=== PATIENT | female | born 1940 | race Caucasian/White ===

== ENCOUNTER 2017-04-02 11:46 | Inpatient (IN) | payer OTHER ==
[~2017-04-02] VITALS: Ht 142.2 cm; Wt 40.9 kg
[2017-04-02] MEDS ORDERED: ONDANSETRON 4 MG/2 ML VIAL IV ONE (12:00)
[2017-04-02] MEDS ORDERED: MORPHINE SULFATE 2 MG/1 ML DISP.SYRIN IV ONE (12:00)
[2017-04-02] MEDS ORDERED: MEMA10TA PO (12:07)
[2017-04-02] MEDS ORDERED: FLUO10CA26 PO (12:07)
[2017-04-02] MEDS ORDERED: INSU100V7 SQ ×2 (12:07)
[2017-04-02 12:16] LABS: BASOPHILS % (AUTO) 0.2 % (0.0-2.0); EOSINOPHILS % (AUTO) 0.1 % (0.0-7.0); HEMATOCRIT 39.2 % (31.2-41.9); LYMPHOCYTES # (AUTO) 1.6 K/uL (20.0-40.0); LYMPHOCYTES % (AUTO) 8.2 % (20.5-51.5); MEAN CORPUSCULAR HEMOGLOBIN 27.1 uug (24.7-32.8); MEAN CORPUSCULAR HGB CONC 33 g/dL (32.3-35.6); MEAN CORPUSCULAR VOLUME 81.4 fL (75.5-95.3); MONOCYTES # (AUTO) 1.2 K/uL (2.0-10.0); NEUTROPHILS # (AUTO) 16.8 K/uL (1.8-8.9); NEUTROPHILS % (AUTO) 85.5 % (38.5-71.5); PLATELET COUNT (AUTO) 309 K/uL (179-408); RED BLOOD CELL COUNT(AUTO) 4.81 MIL/uL (3.63-4.92); WHITE BLOOD COUNT (AUTO) 19.6 K/uL (3.8-11.8)
[2017-04-02 12:20] LABS: CARBON DIOXIDE 33 mmol/L (21-32); CHLORIDE 94 mmol/L (98-107); GLUCOSE 207 mg/dL (74-106); POTASSIUM 3.3 mmol/L (3.5-5.1); UREA NITROGEN, BLOOD 13 mg/dL (7-18)
[2017-04-02 12:26] LABS: ALANINE AMINOTRANSFERASE 18 U/L (14-59); ALKALINE PHOSPHATASE 103 U/L (50-136); ASPARTATE AMINOTRANSFERASE 17 U/L (15-37); BILIRUBIN,DIRECT 0.2 mg/dL (0.0-0.2); BILIRUBIN,TOTAL 0.6 mg/dL (0.2-1.0); LIPASE 68 U/L (73-393); TOTAL PROTEIN, SERUM 8.1 g/dL (6.4-8.2)
[2017-04-02] MEDS ORDERED: ONDANSETRON 4 MG/2 ML VIAL ONE (12:29)
[2017-04-02] MEDS ORDERED: MORPHINE SULFATE 2 MG/1 ML DISP.SYRIN ONE (12:29)
--- NOTE | 2017-04-02 12:29 | NUR ---
Pt BIB private ambulance from [facility], reports Pt has RUQ ABD pain and nausea, vomited x1 last night. Pt c/o 5/10 ABD pain and tenderness in RUQ, BSx4Qs. Pt denies CP, SOB, dizziness, no other complaints, no distress noted.
[2017-04-02] MEDS ORDERED: IV NORMAL SALINE 1000 ML BAG IV ONE (12:45)
[2017-04-02] MEDS ORDERED: NEOMY/BACITRA/POLYMYXIN B OINT UD PACKET TP ONE (13:24)
--- NOTE | 2017-04-02 13:51 | NUR ---
Called report to CHARLES Herrera
[2017-04-02] MEDS ORDERED: PIPERACILLIN/TAZOBACTAM/D5W 3.375 G in PREMIXED 1 EACH IV ONE (14:00)
[2017-04-02] MEDS ORDERED: PIPERACILLIN/TAZOBACTAM/D5W 50 ML IV ONE (14:09)
--- NOTE | 2017-04-02 14:30 | NUR ---
NEW PATIENT FROM ER TO ROOM 219 AWAKE ALERT X1 ,FORGETFUL AND SPEAK POLISH VS TAKEN STABLE NO FEVER NO N/V OR PAIN AT THIS TIME ON FALL PRECAUTION BED ALARM ON AND CALL LIGHT WITHIN REACH INSTRUCTION TO USE WHEN NEEDED
--- NOTE | 2017-04-02 15:30 | NUR ---
DR CHÁVEZ WAS CALL TO NOTIFY OF PT ADM AND MESSAGE LEFT
--- NOTE | 2017-04-02 16:30 | NUR ---
DR CHÁVEZ CALL BACK AND ORDER RECIEVED
[2017-04-02] MEDS ORDERED: DEXTROSE 50% 50 ML DISP.SYRIN IV PRN (16:45)
[2017-04-02] MEDS ORDERED: MORPHINE SULFATE 4 MG/1 ML DISP.SYRIN IV PRN (16:45)
[2017-04-02] MEDS ORDERED: MORPHINE SULFATE 2 MG/1 ML DISP.SYRIN IV PRN (16:45)
[2017-04-02] MEDS: PANTOPRAZOLE SODIUM 40 MG VIAL IV SCH (16:56)
[2017-04-02] MEDS: BLOOD SUGAR DIAGNOSTIC 1 EACH STRIP VI SCH ×2 (17:09→20:45)
--- NOTE | 2017-04-02 17:30 | NUR ---
DR DOUGHERTY HERE SEEN PATIENT AND NEW ORDER LAB IN CHART
[2017-04-02 17:55] VITALS: BP 104/54
--- NOTE | 2017-04-02 18:00 | NUR ---
PATIENT PULLED IV OUT RESTART A NEW ONE ON LEFT WRIST #20 AND CONTINUE IVF
[2017-04-02] MEDS: ONDANSETRON 4 MG/2 ML VIAL IV PRN (18:14)
[2017-04-02] MEDS: MORPHINE SULFATE 4 MG/1 ML DISP.SYRIN IV PRN (18:15)
--- NOTE | 2017-04-02 18:30 | NUR ---
PT ALERT AND ORIENTED X1. CLOSE OBSERVATION FOR FALL PRECAUTION. HAVE TO REMIND TO USE CALL LIGHT. SAFETY MEASURE PROVIDED. BED ALARM ON AND CALL LIGHT WITHIN REACH.
--- NOTE | 2017-04-02 19:30 | NUR ---
PATIENT AWAKE, SPEAK BULGARIAN, CONFUSED DUE TO HEALTH CONDITION, NO SOB NO CHEST PAIN, NO COMPLAIN OF AT THIS TIME, NO COUGHING NOTED, ASSISTED WITH TOILETING, FREQUENT VISUAL CHECK, CONT TO MONITOR.
[2017-04-02 20:00] VITALS: BP 110/50
[2017-04-02] MEDS: INSULIN REGULAR, HUMAN 300 UNIT/3 ML VIAL SQ PRN (20:48)
--- NOTE | 2017-04-03 00:15 | NUR ---
PATIENT HAS ORDER FOR LAPARASCOPIC PROCEDURE, OBTAINED CONSENT FROM KEVON KNOWLES SON OF THE PATIENT VIA PHONE WITH ANOTHER RN WITNESS.
[2017-04-03 00:16] LABS: *BLOOD, URINE 3+ (NEGATIVE); *CLARITY,URINE SLIGHTLY CLOUDY (CLEAR); *COLOR,URINE YELLOW (YELLOW); *KETONES,URINE TRACE (NEGATIVE); *PROTEIN,URINE 2+ (NEGATIVE); *UROBILINOGEN,URINE >=8.0 E.U./dl (NORMAL); LEUKOCYTE ESTERASE ,URINE NEGATIVE (NEGATIVE); NITRITE, URINE NEGATIVE (NEGATIVE); PH,URINE 6.5 (5.0-8.0); UGLUCOSE NEGATIVE (NEGATIVE)
[2017-04-03 00:27] LABS: *BILIRUBIN,URIN 1+ (NEGATIVE)
[2017-04-03 00:32] LABS: BACTERIA,URINE NONE SEEN /HPF (NONE SEEN); SQUAMOUS EPITHELIAL CELL,UR FEW /HPF (NONE SEEN); WBC,URINE 0-3 /HPF (0-3)
[2017-04-03 00:33] LABS: RBC,URINE 80-100 /HPF (0-3)
[2017-04-03] MEDS: IV D5/ 0.9% NACL 1,000 ML IV PRN (00:39)
[2017-04-03 04:00] VITALS: BP 120/61
[2017-04-03] MEDS: BLOOD SUGAR DIAGNOSTIC 1 EACH STRIP VI SCH ×4 (06:08→21:37)
--- NOTE | 2017-04-03 07:40 | NUR ---
Client is in bed supine with the HOB at 30 degrees. Client is awake and able to communicate in Japanese. No signs and symptoms of pain, SOB, distress or discomfort.
[2017-04-03 07:48] LABS: ALANINE AMINOTRANSFERASE 18 U/L (14-59); ALKALINE PHOSPHATASE 115 U/L (50-136); ASPARTATE AMINOTRANSFERASE 24 U/L (15-37); BILIRUBIN,TOTAL 0.4 mg/dL (0.2-1.0); CARBON DIOXIDE 29 mmol/L (21-32); CHLORIDE 103 mmol/L (98-107); CREATININE 0.8 mg/dL (0.6-1.3); GLUCOSE 224 mg/dL (74-106); MAGNESIUM 1.7 mg/dL (1.8-2.4); PHOSPHOROUS 2.6 mg/dL (2.5-4.9); UREA NITROGEN, BLOOD 11 mg/dL (7-18)
[2017-04-03 07:49] LABS: BASOPHILS # (AUTO) 0.1 K/uL (0.0-8.0); BASOPHILS % (AUTO) 0.8 % (0.0-2.0); EOSINOPHILS % (AUTO) 0.1 % (0.0-7.0); HEMATOCRIT 36.1 % (37-47); LYMPHOCYTES # (AUTO) 1.2 K/UL (0.8-4.8); LYMPHOCYTES % (AUTO) 7.7 % (20.5-51.5); MEAN CORPUSCULAR HEMOGLOBIN 27.2 UUG (27.0-31.0); MEAN CORPUSCULAR HGB CONC 33 g/dL (32.0-37.0); MEAN CORPUSCULAR VOLUME 82.1 FL (81.0-99.0); MONOCYTES # (AUTO) 1.3 K/UL (0.1-1.30); NEUTROPHILS # (AUTO) 13.1 K/UL (1.8-8.9); NEUTROPHILS % (AUTO) 83.4 % (38.5-71.5); PLATELET COUNT (AUTO) 261 K/UL (150-450); WHITE BLOOD COUNT (AUTO) 15.7 K/UL (4.0-11.2)
[2017-04-03] MEDS: PANTOPRAZOLE SODIUM 40 MG VIAL IV SCH (08:35)
[2017-04-03] MEDS ORDERED: POTASSIUM CHLORIDE 50 ML IV SCH (10:30)
--- NOTE | 2017-04-03 10:30 | NUR ---
Seen and evaluated by Dr. Chatman
[2017-04-03] MEDS: MAGNESIUM SULFATE/D5W 100 ML IV SCH ×2 (11:14→12:15)
[2017-04-03 11:41] VITALS: BP 118/54
[2017-04-03] MEDS: INSULIN REGULAR, HUMAN 300 UNIT/3 ML VIAL SQ PRN ×2 (12:11→21:39)
[2017-04-03] MEDS: POTASSIUM CHLORIDE 10 MEQ in IV DEXTROSE 5% 50 ML IV SCH ×4 (13:25→23:49)
--- NOTE | 2017-04-03 13:26 | NUR ---
IV Dextrose Potassium administered late due to previous infusions of Magnesium Sulfate
[2017-04-03] MEDS ORDERED: BUPIVACAINE/EPI PF 0.25% 30 ML VIAL ONE (13:34)
[2017-04-03] MEDS ORDERED: LIDOCAINE HCL 1% 20 ML VIAL ONE (13:34)
[2017-04-03] MEDS ORDERED: EPHEDRINE SULFATE 50 MG/ML AMPUL MC ONE (14:07)
[2017-04-03] MEDS ORDERED: DEXAMETHASONE SOD PHOSPHATE 4 MG INJ IV ONE (14:07)
[2017-04-03] MEDS ORDERED: SEVOFLURANE 250 ML BOTTLE IH ONE (14:07)
[2017-04-03] MEDS ORDERED: LIDOCAINE-MPF 2% 5 ML VIAL MC ONE (14:07)
[2017-04-03] MEDS ORDERED: IV NORMAL SALINE 1000 ML BAG IV ONE (14:07)
[2017-04-03] MEDS ORDERED: PROPOFOL 200 MG/20 ML BOTTLE IV ONE (14:07)
--- NOTE | 2017-04-03 15:20 | NUR ---
Iv Dextrose Potassium held due to noted left wrist IV leaking
--- NOTE | 2017-04-03 15:35 | NUR ---
New IV line started on the left forearm 20g. Resumed Potassium infusion
--- NOTE | 2017-04-03 15:43 | NUR ---
Client went down to procedure accompanied by two nurses Addendum: 04/03/17 at 1657 by GEE SMITH RN Noted that KCL 10 Meq in IV Dextrose 5% 50ml (1st bag) was placed on hold and not taken down with the client. Noted with about 20ml left to be infused
[2017-04-03] MEDS ORDERED: ROCURONIUM BROMIDE 50 MG/5 ML VIAL ONE (16:24)
[2017-04-03] MEDS ORDERED: FENTANYL CITRATE 100 MCG/2 ML AMPUL ONE ×2 (16:24→18:57)
[2017-04-03] MEDS ORDERED: METRONIDAZOLE 500 MG/NS 100ML 500 MG in PREMIXED 1 EACH IV ONE (16:30)
--- NOTE | 2017-04-03 16:30 | NUR ---
Flagyl non-administered because client was downstairs for procedure
--- NOTE | 2017-04-03 16:35 | NUR ---
client is not on the floor, client is getting a procedure done Addendum: 04/03/17 at 1636 by GEE SMITH RN Amended: Links added.
--- NOTE | 2017-04-03 16:39 | NUR ---
Accu-ck not done due to client is off the med-surg floor and downstairs for a procedure
--- NOTE | 2017-04-03 17:50 | NUR ---
No rounding made since client is still off the med-surg floor for procedure Addendum: 04/03/17 at 1752 by GEE SMITH RN Amended: Links added.
--- NOTE | 2017-04-03 18:45 | NUR ---
Client is still downstairs for procedure Addendum: 04/03/17 at 1846 by GEE SMITH RN Amended: Links added.
--- NOTE | 2017-04-03 18:47 | NUR ---
client is till downstairs for procedure Addendum: 04/03/17 at 1847 by GEE SMITH RN Amended: Links added.
--- NOTE | 2017-04-03 18:57 | NUR ---
Client is still off the med-surg floor and is still downstairs for procedure. Three bags of KCL still not administered
--- NOTE | 2017-04-03 19:01 | NUR ---
client is off the med-surg floor and downstairs for procedure Addendum: 04/03/17 at 1901 by GEE SMITH RN Amended: Links added.
--- NOTE | 2017-04-03 19:08 | NUR ---
Pharmacy is aware of the 25ml unfused KCL from the 1st bag and the 3 un-administered KCL bag due to client being downstairs for procedure. It will be endorsed to the coater smoking pipe to administer the rest on the KCL IV when client arrives back from procedure/surgery.
--- NOTE | 2017-04-03 19:40 | NUR ---
PATIENT BACK FROM LAPARASCOPIC PROCEDURE IN FAIR CONDITION, RECEIVED REPORT FROM ER NURSE, PATEINT WITH ALTA KIRBY DRAINING WITH SEROSANGUINEOUS FLUID IN MODERATE AMOUNT, AND ALSO PUNCTURE WOUND WITH LIQUID DRESSING IN THE ABDOMEN. NO COMPLAIN OF PAIN AT THIS TIME. CONT TO MONITOR.
--- NOTE | 2017-04-03 19:40 | NUR ---
ER NURSE ENDORSED TO ME THAT PATIENT YELLOW RING IS TAPED TO HER LEFT 4TH FINGERS, ALSO YELLOW NECKLACE, AND ONE (1) YELLOW EARRINGS ONLY. ER NURSE SAID THAT PATIENT HAS ONLY ONE (1) EARRINGS WHEN WENT FOR PROCEDURE. PATIENT WANTED TO WEAR HER JEWELRY, SO PATIENT IS WEARING HER NECKLACE AND EARRINGS.
[2017-04-03 20:00] VITALS: BP 118/58
[2017-04-03] MEDS ORDERED: METRONIDAZOLE 500 MG/NS 100ML 200 ML IV ONE (21:45)
[2017-04-03] MEDS: HYDROCODONE/APAP 5-325MG TABLET PO PRN (22:38)
[2017-04-03] MEDS: METRONIDAZOLE 500 MG/NS 100ML 500 MG in PREMIXED 1 EACH IV SCH (23:55)
[2017-04-04] MEDS: IV D5/ 0.9% NACL 1,000 ML IV PRN (01:39)
[2017-04-04 04:47] VITALS: BP 100/50
[2017-04-04] MEDS: METRONIDAZOLE 500 MG/NS 100ML 500 MG in PREMIXED 1 EACH IV SCH ×3 (06:08→21:54)
[2017-04-04] MEDS: BLOOD SUGAR DIAGNOSTIC 1 EACH STRIP VI SCH ×4 (06:09→20:51)
--- NOTE | 2017-04-04 06:15 | NUR ---
PATIENT ALERT, AWAKE NO SOB NO CHEST PAIN, STEPHAN DRAINING WITH SMALL AMOUNT OF SEROSANGUINEOUS DRAINING, PUNCTURE WOUND INTACT NO BLEEDING NOTED, STEPHAN SECURED WITH DRESSING AND TAPE, CONT ON PAIN MANAGEMENT, ASSISTED WITH TOILETING, VOIDED WITH LARGE AMOUNT OF CODY COLOR URINE. CONT TO MONITOR.
--- NOTE | 2017-04-04 07:30 | NUR ---
Received client in bed awake, with no s/s of pain, SOB, distress or discomfort. STEPHAN drain intact and draining.
[2017-04-04] MEDS: PANTOPRAZOLE SODIUM 40 MG VIAL IV SCH (08:17)
[2017-04-04] MEDS: MORPHINE SULFATE 4 MG/1 ML DISP.SYRIN IV PRN (08:18)
[2017-04-04] MEDS: INSULIN REGULAR, HUMAN 300 UNIT/3 ML VIAL SQ PRN ×4 (08:21→20:49)
[2017-04-04 10:03] LABS: BASOPHILS % (AUTO) 0.1 % (0.0-2.0); EOSINOPHILS % (AUTO) 0.1 % (0.0-7.0); HEMATOCRIT 36.6 % (31.2-41.9); HEMOGLOBIN 11.7 g/dL (10.9-14.3); LYMPHOCYTES # (AUTO) 0.8 K/uL (20.0-40.0); LYMPHOCYTES % (AUTO) 3.7 % (20.5-51.5); MEAN CORPUSCULAR HEMOGLOBIN 27.2 uug (24.7-32.8); MEAN CORPUSCULAR HGB CONC 32 g/dL (32.3-35.6); MEAN CORPUSCULAR VOLUME 84.7 fL (75.5-95.3); MONOCYTES # (AUTO) 0.6 K/uL (2.0-10.0); MONOCYTES % (AUTO) 2.8 % (0.0-11.0); NEUTROPHILS # (AUTO) 20.4 K/uL (1.8-8.9); NEUTROPHILS % (AUTO) 93.3 % (38.5-71.5); PLATELET COUNT (AUTO) 281 K/uL (179-408); RED BLOOD CELL COUNT(AUTO) 4.32 MIL/uL (3.63-4.92); WHITE BLOOD COUNT (AUTO) 21.9 K/uL (3.8-11.8)
[2017-04-04 10:11] LABS: ALANINE AMINOTRANSFERASE 56 U/L (14-59); ALKALINE PHOSPHATASE 108 U/L (50-136); ASPARTATE AMINOTRANSFERASE 81 U/L (15-37); BILIRUBIN,TOTAL 0.3 mg/dL (0.2-1.0); CARBON DIOXIDE 26 mmol/L (21-32); CHLORIDE 106 mmol/L (98-107); CREATININE 0.9 mg/dL (0.6-1.3); MAGNESIUM 2.3 mg/dL (1.8-2.4); PHOSPHOROUS 2.9 mg/dL (2.5-4.9); POTASSIUM 4.2 mmol/L (3.5-5.1); TOTAL PROTEIN, SERUM 6.4 g/dL (6.4-8.2); UREA NITROGEN, BLOOD 13 mg/dL (7-18)
[2017-04-04 10:27] LABS: GLUCOSE 358 mg/dL (74-106)
[2017-04-04 12:02] VITALS: BP 99/50
[2017-04-04] MEDS: HYDROCODONE/APAP 5-325MG TABLET PO PRN (12:06)
--- NOTE | 2017-04-04 12:19 | NUR ---
At client's bedside, noted the client sitting in the chair. tolerating activity with moderate pain on the right side of her abdomen. No signs of SOB. teaching client how to use the incentive spirametry
[2017-04-04] MEDS ORDERED: INSULIN GLARGINE,HUM 300 UNITS/3 ML CARTRIDGE SQ PRN ×4 (15:00→15:15)
--- NOTE | 2017-04-04 15:00 | NUR ---
Noted client with high Accu-checks, client is on clear liquids. AM accu-check was 321, noon was 376 and afternoon was 365. 9%NaCl with 5% Dextrose was DC
[2017-04-04 15:27] VITALS: BP 112/52
[2017-04-04] MEDS ORDERED: INSULIN DETEMIR 300 UNIT/3 ML CARTRIDGE SQ PRN ×2 (15:30)
[2017-04-04] MEDS: ACETAMINOPHEN 325 MG TABLET PO PRN (15:51)
[2017-04-04] MEDS: FLUOXETINE HCL 10 MG CAPSULE PO SCH (15:51)
--- NOTE | 2017-04-04 17:06 | NUR ---
30cc removed from the client right side STEPHAN, ice pack applied to abdomen, dressing changed
--- NOTE | 2017-04-04 18:39 | NUR ---
Client is in bed awake with HOB at 45 degrees, no sign and symptoms of pain, SOB, distress or discomfort. Re-educated the client on how to use the incentive spirometry, was able to follow direction and use the incentive spirometry as directed.
[2017-04-04 19:57] VITALS: BP 104/52
--- NOTE | 2017-04-04 20:05 | NUR ---
Pt resting in bed and watching TV. AAO x1. Son at bedside. No acute distress noted. No c/o pain or discomfort at this time. Safety measures maintained. Call light and personal belongings within reach. Will continue to monitor.
[2017-04-04] MEDS: MEMANTINE HCL 10 MG TABLET PO SCH (20:45)
[2017-04-05 04:45] VITALS: BP 133/57
[2017-04-05] MEDS: METRONIDAZOLE 500 MG/NS 100ML 500 MG in PREMIXED 1 EACH IV SCH ×3 (05:10→22:06)
[2017-04-05] MEDS: ACETAMINOPHEN 325 MG TABLET PO PRN (05:18)
--- NOTE | 2017-04-05 05:22 | NUR ---
Pt intermittently slept at night with episodes of confusion and getting out of the room. Reoriented pt as needed. Bed alarm on. 10 mL removed from STEPHAN drain on the right side. Iced pack placed on the abdomen. Pt trying to touch the drain and reorientation is needed. Meds given per MD's order and insulin coverage given per sliding scale. Will endorse to day shift RN. Continue to monitor.
[2017-04-05] MEDS: PANTOPRAZOLE SODIUM 40 MG TABLET.DR PO SCH (06:32)
[2017-04-05] MEDS: BLOOD SUGAR DIAGNOSTIC 1 EACH STRIP VI SCH ×4 (06:36→21:19)
[2017-04-05 06:53] LABS: ALANINE AMINOTRANSFERASE 50 U/L (14-59); ALKALINE PHOSPHATASE 103 U/L (50-136); ASPARTATE AMINOTRANSFERASE 41 U/L (15-37); BILIRUBIN,TOTAL 0.2 mg/dL (0.2-1.0); CARBON DIOXIDE 27 mmol/L (21-32); CHLORIDE 109 mmol/L (98-107); CREATININE 0.7 mg/dL (0.6-1.3); GLUCOSE 122 mg/dL (74-106); PHOSPHOROUS 1.6 mg/dL (2.5-4.9); POTASSIUM 3.3 mmol/L (3.5-5.1); TOTAL PROTEIN, SERUM 6.4 g/dL (6.4-8.2); UREA NITROGEN, BLOOD 10 mg/dL (7-18)
--- NOTE | 2017-04-05 07:00 | NUR ---
RECEIVED REPORT FROM WELDING MACHINE ASSEMBLER NURSE, PATIENT IN BED AWAKE, NO EVIDENCE OF DISTRESS NOTED, BED IN LOW POSITION, SIDE RAILS UP X2.
[2017-04-05 07:09] LABS: BASOPHILS % (AUTO) 0.1 % (0.0-2.0); EOSINOPHILS % (AUTO) 0.1 % (0.0-7.0); HEMATOCRIT 35.9 % (31.2-41.9); HEMOGLOBIN 12.2 g/dL (10.9-14.3); LYMPHOCYTES # (AUTO) 1.6 K/uL (20.0-40.0); MEAN CORPUSCULAR HEMOGLOBIN 28.4 uug (24.7-32.8); MEAN CORPUSCULAR HGB CONC 34 g/dL (32.3-35.6); MEAN CORPUSCULAR VOLUME 83.4 fL (75.5-95.3); MONOCYTES # (AUTO) 0.9 K/uL (2.0-10.0); MONOCYTES % (AUTO) 4.2 % (0.0-11.0); NEUTROPHILS # (AUTO) 19.7 K/uL (1.8-8.9); NEUTROPHILS % (AUTO) 88.6 % (38.5-71.5); PLATELET COUNT (AUTO) 317 K/uL (179-408); RED BLOOD CELL COUNT(AUTO) 4.31 MIL/uL (3.63-4.92); WHITE BLOOD COUNT (AUTO) 22.2 K/uL (3.8-11.8)
[2017-04-05] MEDS: HYDROCODONE/APAP 5-325MG TABLET PO PRN ×2 (08:48→13:40)
[2017-04-05] MEDS: FLUOXETINE HCL 10 MG CAPSULE PO SCH (08:48)
[2017-04-05] MEDS: MEMANTINE HCL 10 MG TABLET PO SCH ×2 (08:48→21:16)
[2017-04-05] MEDS: INSULIN REGULAR, HUMAN 300 UNIT/3 ML VIAL SQ PRN ×3 (08:51→21:27)
[2017-04-05 11:28] VITALS: BP 107/53
[2017-04-05] MEDS ORDERED: POTASSIUM CHLORIDE 20 MEQ POWDER PACKET PO ONE (12:30)
[2017-04-05 15:07] VITALS: BP 125/50
[2017-04-05] MEDS ORDERED: NEUTRA PHOS PACKET PO ONE (15:45)
--- NOTE | 2017-04-05 19:49 | NUR ---
RECEIVED SHIFT REPORT FROM DAY SHIFT NURSE. PATIENT IS SLIGHTLY CONFUSED, GETS OUT OF BED NUMEROUS TIMES WITH BED ALARM ON. REORIENTED HER TO GET INSIDE BED AND PATIENT IS COOPERATIVE. BED ALARM IS ON. PATIENT IS SAFE. NO S/S OF DISTRESS. HAS STEPHAN DRAIN IN PLACE, INTACT. STABLE CONDITION. SAFETY/COMFORT WILL BE PROVIDED.
[2017-04-05 20:30] VITALS: BP 172/72
[2017-04-05] MEDS ORDERED: NITROGLYCERIN OINT 1 GM PACKET TP SCH (20:30)
[2017-04-05 21:12] VITALS: BP 133/66
[2017-04-06] MEDS: MORPHINE SULFATE 4 MG/1 ML DISP.SYRIN IV PRN ×2 (01:14→11:09)
[2017-04-06 04:00] VITALS: BP 127/74
[2017-04-06] MEDS: METRONIDAZOLE 500 MG/NS 100ML 500 MG in PREMIXED 1 EACH IV SCH ×3 (05:58→22:28)
[2017-04-06] MEDS: PANTOPRAZOLE SODIUM 40 MG TABLET.DR PO SCH (06:08)
--- NOTE | 2017-04-06 06:43 | NUR ---
PAIN MANAGEMENT PROVIDED, STEPHAN DRAIN DRAINED, PATIENT IN STABLE CONDITION, NO S/S OF DISTRESS.
[2017-04-06 06:53] LABS: BASOPHILS % (AUTO) 0.2 % (0.0-2.0); EOSINOPHILS % (AUTO) 0.2 % (0.0-7.0); HEMATOCRIT 35.7 % (31.2-41.9); HEMOGLOBIN 11.7 g/dL (10.9-14.3); LYMPHOCYTES # (AUTO) 2.2 K/uL (20.0-40.0); MEAN CORPUSCULAR HEMOGLOBIN 27.5 uug (24.7-32.8); MEAN CORPUSCULAR HGB CONC 33 g/dL (32.3-35.6); MEAN CORPUSCULAR VOLUME 83.5 fL (75.5-95.3); MONOCYTES # (AUTO) 1.2 K/uL (2.0-10.0); MONOCYTES % (AUTO) 7.8 % (0.0-11.0); NEUTROPHILS % (AUTO) 77.8 % (38.5-71.5); PLATELET COUNT (AUTO) 385 K/uL (179-408); RED BLOOD CELL COUNT(AUTO) 4.27 MIL/uL (3.63-4.92); WHITE BLOOD COUNT (AUTO) 15.5 K/uL (3.8-11.8)
[2017-04-06] MEDS: BLOOD SUGAR DIAGNOSTIC 1 EACH STRIP VI SCH ×4 (06:53→21:00)
--- NOTE | 2017-04-06 06:53 | NUR ---
BLOOD SUGAR 76: PROVIDED PATIENT WITH APPLE JUICE.
[2017-04-06 07:23] LABS: ALANINE AMINOTRANSFERASE 73 U/L (14-59); ALKALINE PHOSPHATASE 281 U/L (50-136); ASPARTATE AMINOTRANSFERASE 118 U/L (15-37); BILIRUBIN,TOTAL 0.3 mg/dL (0.2-1.0); CARBON DIOXIDE 30 mmol/L (21-32); CHLORIDE 106 mmol/L (98-107); CREATININE 0.8 mg/dL (0.6-1.3); GLUCOSE 59 mg/dL (74-106); MAGNESIUM 1.5 mg/dL (1.8-2.4); PHOSPHOROUS 2.4 mg/dL (2.5-4.9); TOTAL PROTEIN, SERUM 6.6 g/dL (6.4-8.2); UREA NITROGEN, BLOOD 6 mg/dL (7-18)
[2017-04-06] MEDS ORDERED: POTASSIUM CHLORIDE 20 MEQ POWDER PACKET PO ONE (09:00)
[2017-04-06] MEDS ORDERED: POTASSIUM CHLORIDE 50 ML IV SCH (09:00)
[2017-04-06 09:26] LABS: *BILIRUBIN,URIN NEGATIVE (NEGATIVE); *BLOOD, URINE 2+ (NEGATIVE); *COLOR,URINE YELLOW (YELLOW); *KETONES,URINE NEGATIVE (NEGATIVE); *PROTEIN,URINE NEGATIVE (NEGATIVE); *UROBILINOGEN,URINE >=8.0 E.U./dl (NORMAL); LEUKOCYTE ESTERASE ,URINE NEGATIVE (NEGATIVE); NITRITE, URINE NEGATIVE (NEGATIVE); PH,URINE 7.5 (5.0-8.0); UGLUCOSE NEGATIVE (NEGATIVE)
[2017-04-06 09:27] LABS: *CLARITY,URINE SLIGHTLY CLOUDY (CLEAR)
[2017-04-06] MEDS: MEMANTINE HCL 10 MG TABLET PO SCH ×2 (09:31→21:01)
[2017-04-06] MEDS: FLUOXETINE HCL 10 MG CAPSULE PO SCH (09:31)
[2017-04-06 09:32] LABS: BACTERIA,URINE FEW /HPF (NONE SEEN); SQUAMOUS EPITHELIAL CELL,UR FEW /HPF (NONE SEEN)
[2017-04-06] MEDS: ONDANSETRON 4 MG/2 ML VIAL IV PRN (09:32)
[2017-04-06] MEDS: MAGNESIUM SULFATE/D5W 100 ML IV SCH ×4 (09:33→14:33)
--- NOTE | 2017-04-06 11:31 | NUR ---
IV NOTE HAS MULTI IVS ORDERED SHE IS GETTING IN AND OUT OF BED AND PULLING ON THE IV AND STEPHAN DRAIN TUBING. IV COVERED WITH GAUZE. IVF STOPPED FOR NOW D/T HER AGITATION.
[2017-04-06 11:35] VITALS: BP 142/74
[2017-04-06] MEDS: INSULIN REGULAR, HUMAN 300 UNIT/3 ML VIAL SQ PRN ×3 (12:18→21:09)
[2017-04-06 15:58] VITALS: BP 94/55
[2017-04-06] MEDS: POTASSIUM CHLORIDE 10 MEQ in IV DEXTROSE 5% 50 ML IV SCH ×4 (16:09→23:20)
[2017-04-06] MEDS ORDERED: NEUTRA PHOS PACKET PO ONE (16:30)
--- NOTE | 2017-04-06 19:37 | NUR ---
RECEIVED SHIFT REPORT FROM DAY SHIFT NURSE. PATIENT RESTING COMFORTABLY, NO S/S OF DISTRESS, STABLE CONDITION. BED ALARM ON, BED IN LOCKED/LOW POSITION, SIDE RAILS UP X3, CALL LIGHT WITHIN REACH. SAFETY/ COMFORT WILL BE PROVIDED.
[2017-04-06 20:00] VITALS: BP 119/56
[2017-04-07] MEDS: HYDROCODONE/APAP 5-325MG TABLET PO PRN (02:15)
[2017-04-07] MEDS: PANTOPRAZOLE SODIUM 40 MG TABLET.DR PO SCH (05:53)
[2017-04-07] MEDS: METRONIDAZOLE 500 MG/NS 100ML 500 MG in PREMIXED 1 EACH IV SCH (05:53)
[2017-04-07] MEDS: BLOOD SUGAR DIAGNOSTIC 1 EACH STRIP VI SCH ×2 (06:08→10:52)
[2017-04-07 06:34] VITALS: BP 115/74
--- NOTE | 2017-04-07 06:37 | NUR ---
PATIENT SLEPT INTERMITTENTLY THROUGH THE NIGHT. NO S/S OF DISTRESS, STABLE CONDITION. PATIENT COMPLAINED OF PAIN ONCE THROUGH THE NIGHT, PAIN MANGAEMENT PROVIDED. PATIENT CONTINUES TO BE CONFUSED, ORIENTED TO SELF. REORIENTATION IMPORTANT FOR PATIENT AND IS EFFECTIVE. ATTEMPTS TO PULL OUT IV AT TIMES WHEN ANTIBIOTICS ARE RUNNING. OTHERWISE, PATIENT IS IN SAFE ENVIRONMENT, SAFE CONDITION, BED IN LOCKED/LOW POSITION WITH SIDE RAILS UP X2, BED ALARM ON, CALL LIGHT WITHIN REACH. SAFETY/COMFORT PROVIDED THROUGHOUT SHIFT.
[2017-04-07 07:28] LABS: CARBON DIOXIDE 26 mmol/L (21-32); CHLORIDE 103 mmol/L (98-107); CREATININE 0.8 mg/dL (0.6-1.3); GLUCOSE 255 mg/dL (74-106); PHOSPHOROUS 3.1 mg/dL (2.5-4.9); POTASSIUM 4.9 mmol/L (3.5-5.1); UREA NITROGEN, BLOOD 8 mg/dL (7-18)
[2017-04-07] MEDS: MEMANTINE HCL 10 MG TABLET PO SCH (08:05)
[2017-04-07] MEDS: FLUOXETINE HCL 10 MG CAPSULE PO SCH (08:05)
--- NOTE | 2017-04-07 08:54 | NUR ---
PATIENT RESTING COMFORTABLY, NO S/S OF DISTRESS, STABLE CONDITION. BED ALARM ON, BED IN LOCKED/LOW POSITION, SIDE RAILS UP X3, CALL LIGHT WITHIN REACH. SAFETY/ COMFORT WILL BE PROVIDED
[2017-04-07] MEDS: INSULIN REGULAR, HUMAN 300 UNIT/3 ML VIAL SQ PRN (10:53)
[2017-04-07 11:27] VITALS: BP 138/66
--- NOTE | 2017-04-07 13:01 | NUR ---
STEPHAN DRAINAGE REMOVED BY DR DOUGHERTY
[2017-04-07 15:44] VITALS: BP 109/58
--- NOTE | 2017-04-07 15:51 | NUR ---
D/C ORDERS RECEIVED NOTED AND CARRIED OUT,D/C HEPLOCK PER MD ORDERS,RN REPORT GIVEN TO [facility],PT LEFT THE FACILITY VIA AMBULANCES IN STABLE CONDITION.
== END 2017-04-07 15:55 | DRG 417 ==
LOC: ER 11:49 → MED 14:17
PROVIDERS: ADMIT Internal Medicine; ATTEND Internal Medicine
PROC: 0FB04ZX Excision of Liver, Percutaneous Endoscopic Approach, Diagnostic (ICD-10-PCS; 2017-04-03)
PROC: 0FT44ZZ Resection of Gallbladder, Percutaneous Endoscopic Approach (ICD-10-PCS; principal; 2017-04-03 16:26)
DX: K80.00 Calculus of gallbladder with acute cholecystitis without obstruction (principal); E43 Unspecified severe protein-calorie malnutrition; G30.9 Alzheimer's disease, unspecified; E11.9 Type 2 diabetes mellitus without complications; N39.0 Urinary tract infection, site not specified; F02.80 Dementia in other diseases classified elsewhere, unspecified severity, without behavioral disturbance, psychotic disturbance, mood disturbance, and anxiety; E83.51 Hypocalcemia; K44.9 Diaphragmatic hernia without obstruction or gangrene; K57.30 Diverticulosis of large intestine without perforation or abscess without bleeding; E78.5 Hyperlipidemia, unspecified; E87.6 Hypokalemia; Z68.20 Body mass index [BMI] 20.0-20.9, adult; Z79.4 Long term (current) use of insulin; I10 Essential (primary) hypertension; Z79.899 Other long term (current) drug therapy; M81.0 Age-related osteoporosis without current pathological fracture
CPT/HCPCS: 36415; 71010; 83690; 83735; 84100; 85025; 85730; 87040; 87086; 93005; 93307; A4663; C9113; J1100; J1815; J2270; J2405; J2543; J3010; J3475; J3480; J3490; J7030; J7042; J7060

== ENCOUNTER 2019-05-07 16:16 | Emergency (ER) | payer OTHER ==
[~2019-05-07] VITALS: Ht 152.4 cm; Wt 50.3 kg
[~2019-05-07 16:16] MED LIST: ATOR20TA PO; FLUO10CA26 PO; FLUO10TA PO; INSU100V7 SQ; INSU300I SQ; LORA10TA7 PO; MEMA10TA PO
[2019-05-07] MEDS ORDERED: ASPI81TA31 PO (16:31)
[2019-05-07] MEDS ORDERED: LORA-259 PO (16:31)
[2019-05-07] MEDS ORDERED: ESOM40CA52 PO (16:31)
[2019-05-07] MEDS ORDERED: INSU3INS6 SQ ×2 (16:31)
[2019-05-07] MEDS ORDERED: ATOR10TA PO (16:31)
[2019-05-07 16:44] LABS: BASOPHILS # (AUTO) 0.1 K/uL (0.0-8.0)
[2019-05-07 16:50] LABS: BASOPHILS % (AUTO) 0.6 % (0.0-2.0); EOSINOPHILS # (AUTO) 0.2 K/uL (0.0-0.7); EOSINOPHILS % (AUTO) 1.6 % (0.0-7.0); HEMATOCRIT 40.4 % (31.2-41.9); HEMOGLOBIN 12.9 g/dL (10.9-14.3); LYMPHOCYTES # (AUTO) 3.3 K/uL (20.0-40.0); LYMPHOCYTES % (AUTO) 23.7 % (20.5-51.5); MEAN CORPUSCULAR HEMOGLOBIN 26.5 uug (24.7-32.8); MEAN CORPUSCULAR HGB CONC 32 g/dL (32.3-35.6); MEAN CORPUSCULAR VOLUME 82.7 fL (75.5-95.3); MONOCYTES # (AUTO) 0.8 K/uL (2.0-10.0); MONOCYTES % (AUTO) 6.1 % (0.0-11.0); NEUTROPHILS # (AUTO) 9.5 K/uL (1.8-8.9); PLATELET COUNT (AUTO) 301 K/uL (179-408); RED BLOOD CELL COUNT(AUTO) 4.89 MIL/uL (3.63-4.92)
[2019-05-07 16:51] LABS: POTASSIUM 3.7 mmol/L (3.5-5.1)
[2019-05-07 16:57] LABS: BILIRUBIN,DIRECT 0.1 mg/dL (0.0-0.2); BILIRUBIN,TOTAL 0.4 mg/dL (0.2-1.0); TOTAL PROTEIN, SERUM 7.9 g/dL (6.4-8.2)
[2019-05-07] MEDS ORDERED: IV NORMAL SALINE 1000 ML BAG IV ONE (17:00)
[2019-05-07 17:19] LABS: *BILIRUBIN,URIN NEGATIVE (NEGATIVE); *CLARITY,URINE CLEAR (CLEAR); *COLOR,URINE YELLOW (YELLOW); *KETONES,URINE NEGATIVE (NEGATIVE); *UROBILINOGEN,URINE 0.2 E.U./dl (NORMAL); LEUKOCYTE ESTERASE ,URINE NEGATIVE (NEGATIVE); NITRITE, URINE NEGATIVE (NEGATIVE); PH,URINE 6.5 (5.0-8.0); UGLUCOSE 2+ (NEGATIVE)
[2019-05-07 17:26] LABS: *BLOOD, URINE TRACE (NEGATIVE)
[2019-05-07 17:27] LABS: SQUAMOUS EPITHELIAL CELL,UR MODERATE /HPF (NONE SEEN); WBC,URINE 0-3 /HPF (0-3)
--- NOTE | 2019-05-07 17:55 | NUR ---
called jordana to take the pt back home. eta 2000, trip number [id number]
--- NOTE | 2019-05-07 18:04 | NUR ---
dinner tray provided for pt.
--- NOTE | 2019-05-07 18:56 | NUR ---
Pending [facility] to transport pt back to [facility]. ETA 1 hour.
--- NOTE | 2019-05-07 20:03 | NUR ---
[facility] unit [facility] here to transport pt back to [facility]. Patient discharged to home in stable conditon. Written and verbal after care instructions given. Patient verbalizes understanding of instructions. Vital signs stable. Respirations even + unlabored.
[2019-05-07 20:06] VITALS: BP 134/64
== END 2019-05-07 20:11 | disposition home or self-care (01) ==
LOC: ER 16:18
DX: J06.9 Acute upper respiratory infection, unspecified (principal); E11.65 Type 2 diabetes mellitus with hyperglycemia; K21.9 Gastro-esophageal reflux disease without esophagitis; F32.9 Major depressive disorder, single episode, unspecified; F20.9 Schizophrenia, unspecified; Z88.8 Allergy status to other drugs, medicaments and biological substances; Z79.82 Long term (current) use of aspirin; Z79.4 Long term (current) use of insulin; Z79.899 Other long term (current) drug therapy
CPT/HCPCS: 36415; 71045; 85025; 87400; 93005; A4663; J7030

== ENCOUNTER 2019-08-30 01:04 | Inpatient (IN) | payer OTHER ==
[~2019-08-30] VITALS: Ht 149.9 cm; Wt 39.0 kg
[~2019-08-30 01:04] MED LIST changes: +ASPI81TA31 PO; +ATOR10TA PO; +ESOM40CA52 PO; +INSU3INS6 SQ; +LORA-259 PO
--- NOTE | 2019-08-30 01:10 | NUR ---
Called [facility] Neph[facility] to page Dr. Santiago.
--- NOTE | 2019-08-30 01:15 | NUR ---
speaking with Errol Santiago MD of [facility] Nephrology.
--- NOTE | 2019-08-30 01:20 | NUR ---
Xray at bedside.
[2019-08-30 01:44] LABS: ABG BASE EXCESS 2.6 mmol/L; ABG HCO3 26.4 mmol/L; ABG PCO2 38.2 mmHg (35.0-45.0); ABG PH 7.458 (7.350-7.450); ABG PO2 92.9 mmHg (75.0-100.0); ABG SITE RIGHT RADIAL; COHb 1.2 % (0.5-1.5); MetHb 0.2 % (0.0-1.5); O2Hb 96.2 % (94.0-97.0); VENT MODE room air
[2019-08-30 01:57] LABS: BASOPHILS # (AUTO) 0.1 K/uL (0.0-8.0); BASOPHILS % (AUTO) 0.8 % (0.0-2.0); EOSINOPHILS # (AUTO) 0.1 K/uL (0.0-0.7); EOSINOPHILS % (AUTO) 0.9 % (0.0-7.0); HEMATOCRIT 38.6 % (31.2-41.9); HEMOGLOBIN 12.3 g/dL (10.9-14.3); LYMPHOCYTES # (AUTO) 2.7 K/uL (20.0-40.0); LYMPHOCYTES % (AUTO) 18.2 % (20.5-51.5); MEAN CORPUSCULAR HEMOGLOBIN 26.1 uug (24.7-32.8); MEAN CORPUSCULAR HGB CONC 32 g/dL (32.3-35.6); MEAN CORPUSCULAR VOLUME 81.7 fL (75.5-95.3); MONOCYTES # (AUTO) 0.8 K/uL (2.0-10.0); MONOCYTES % (AUTO) 5.4 % (0.0-11.0); NEUTROPHILS % (AUTO) 74.7 % (38.5-71.5); PLATELET COUNT (AUTO) 304 K/uL (179-408); RED BLOOD CELL COUNT(AUTO) 4.73 MIL/uL (3.63-4.92); WHITE BLOOD COUNT (AUTO) 14.7 K/uL (3.8-11.8)
[2019-08-30 02:24] LABS: BILIRUBIN,TOTAL 0.2 mg/dL (0.2-1.0); POTASSIUM 3.8 mmol/L (3.5-5.1); TOTAL PROTEIN, SERUM 7.3 g/dL (6.4-8.2)
--- NOTE | 2019-08-30 02:25 | NUR ---
Pt provided urine sample, sent to lab.
--- NOTE | 2019-08-30 02:40 | NUR ---
Pt sleeping in bed, no acute signs of distress.
[2019-08-30 02:51] LABS: *BILIRUBIN,URIN NEGATIVE (NEGATIVE); *CLARITY,URINE CLOUDY (CLEAR); *COLOR,URINE YELLOW (YELLOW); *KETONES,URINE NEGATIVE (NEGATIVE); LEUKOCYTE ESTERASE ,URINE NEGATIVE (NEGATIVE); NITRITE, URINE NEGATIVE (NEGATIVE)
[2019-08-30 02:53] LABS: *BLOOD, URINE TRACE (NEGATIVE); UGLUCOSE 2+ (NEGATIVE)
[2019-08-30 02:58] LABS: BACTERIA,URINE FEW /HPF (NONE SEEN); RBC,URINE 0-3 /HPF (0-3); SQUAMOUS EPITHELIAL CELL,UR FEW /HPF (NONE SEEN); URINE AMORPHOUS PHOSPHATES MODERATE /HPF; WBC,URINE 0-3 /HPF (0-3)
--- NOTE | 2019-08-30 05:01 | NUR ---
Melvin called back, spoke with Iris, requested to have clinicals and face sheet faxed to .
--- NOTE | 2019-08-30 06:29 | NUR ---
Melvin called back, spoke with Marisa, [facility] didn't want to accept patient due to possible Covid+, patient OK to admit in [place].
--- NOTE | 2019-08-30 07:05 | NUR ---
[facility]
--- NOTE | 2019-08-30 07:30 | NUR ---
Patient is resting comfortably in bed with eyes closed
[2019-08-30] MEDS ORDERED: DEXTROSE 50% 50 ML DISP.SYRIN IV PRN (10:00)
[2019-08-30 11:00] VITALS: BP 142/74
--- NOTE | 2019-08-30 11:00 | NUR ---
Admitted 79 year old female to telemetry with dx of COUGH/PUI. AAOx2-3, mainly vietnamese speaking. Assessment completed. No SOB/cough noted. Ambulatory. Pt oriented to unit. Safety measures maintained. Will continue to monitor.
[2019-08-30] MEDS: BLOOD SUGAR DIAGNOSTIC 1 EACH STRIP VI SCH ×3 (11:11→20:49)
[2019-08-30] MEDS: INSULIN REGULAR, HUMAN 300 UNIT/3 ML VIAL SQ PRN ×3 (11:11→20:50)
[2019-08-30 11:22] LABS: FERRITIN 48 ng/mL (8-252); LACTATE DEHYDROGENASE 228 U/L (81-234)
[2019-08-30] MEDS ORDERED: LORAZEPAM 1 MG TABLET PO SCH (13:00)
--- NOTE | 2019-08-30 14:40 | NUR ---
Patient had witnessed fall. No injuries sustained. Pt denies any pain or discomfort. MD notified. Math And Science Division Chair aware. Will continue to monitor.
[2019-08-30 14:43] VITALS: BP 137/63
[2019-08-30] MEDS: LORAZEPAM 2 MG/1 ML VIAL IV PRN ×2 (14:48→23:16)
[2019-08-30] MEDS ORDERED: MEMANTINE HCL 10 MG TABLET PO SCH (17:00)
[2019-08-30] MEDS: ZIPRASIDONE MESYLATE 20 MG VIAL IM PRN (18:32)
[2019-08-30 19:48] VITALS: BP 123/59
--- NOTE | 2019-08-30 19:53 | NUR ---
Pt continues to get out of bed despite medication interventions. Spool Sander made aware. Sitter at bedside for shift manager safety. Will endorse care accordingly.
--- NOTE | 2019-08-30 20:00 | NUR ---
Received patient lying in bed. Awake but confused and disoriented, Kinyarwanda speaking only. 1:1 sitter at bedside for safety. Calm and relax at this time. In no acute distress. No coughing noted at this time. Droplet and contact precaution observed. Safety measure initiated.
[2019-08-30] MEDS: MEMANTINE HCL 10 MG TABLET PO SCH (20:41)
--- NOTE | 2019-08-30 20:42 | NUR ---
Patient allergic to atorvastatin per record. Lipitor not given.
[2019-08-30] MEDS: INSULIN GLARGINE,HUM 300 UNITS/3 ML CARTRIDGE SQ SCH (20:50)
[2019-08-30] MEDS ORDERED: ATORVASTATIN 10 MG TABLET PO SCH (21:00)
--- NOTE | 2019-08-30 22:04 | NUR ---
TELEPHONE CALL TO PATIENT JOSE LUND AND UPDATED ON PATIENT CURRENT CONDITION.
--- NOTE | 2019-08-30 23:00 | NUR ---
Started new IV line on right hand #24G.
--- NOTE | 2019-08-31 | NUR ---
NSR on tele at 990/min.
[2019-08-31 00:39] VITALS: BP 134/70
[2019-08-31 05:07] VITALS: BP 141/73
--- NOTE | 2019-08-31 06:06 | NUR ---
Awake but confused and disoriented, Armenian speaking only. Periods of anxiety/restlessness. Ativan 0.5mg IV given PRN per order with some help. 1:1 sitter at bedside for safety. In no acute distress. No coughing noted. NSR, sinus tachy on tele between 90-110/min. Droplet and contact precaution maintained. Safety measure maintained.
[2019-08-31] MEDS: BLOOD SUGAR DIAGNOSTIC 1 EACH STRIP VI SCH ×4 (06:32→22:05)
--- NOTE | 2019-08-31 07:07 | NUR ---
Telephone call from lab/[facility] that patient is negative for COVID. AM nurse [place] aware and will notify
[2019-08-31 08:00] VITALS: BP 136/82
--- NOTE | 2019-08-31 08:00 | NUR ---
PT with sitter 1:1 for safety pt has an IV on right hand 24 gauge. intact. Plan of care for safety and fall implemented. Call light is within reach. NO SOB noted.
[2019-08-31] MEDS: FLUOXETINE HCL 10 MG CAPSULE PO SCH (08:41)
[2019-08-31] MEDS: ASPIRIN 81 MG TAB.CHEW PO SCH (08:41)
[2019-08-31] MEDS: PANTOPRAZOLE SODIUM 40 MG TABLET.DR PO SCH (08:42)
[2019-08-31] MEDS: MEMANTINE HCL 10 MG TABLET PO SCH ×2 (08:42→21:54)
[2019-08-31] MEDS: LORAZEPAM 2 MG/1 ML VIAL IV PRN (08:42)
[2019-08-31] MEDS ORDERED: LORATADINE 10 MG TABLET PO SCH (09:00)
[2019-08-31] MEDS ORDERED: ATORVASTATIN 20 MG TABLET PO SCH (09:00)
[2019-08-31] MEDS ORDERED: Medication Not On Formulary EA (Esomeprazole Magnesium 40 MG) PO SCH (09:00)
--- NOTE | 2019-08-31 09:00 | NUR ---
Pt was getting oob and attempting to get out of the isolation pt has poor balance. Ativan given for anxiety and calm patient down. 1:1 sitter at bedside. Call light is within reach.
[2019-08-31] MEDS: INSULIN GLARGINE,HUM 300 UNITS/3 ML CARTRIDGE SQ SCH ×2 (09:06→22:07)
[2019-08-31] MEDS: INSULIN REGULAR, HUMAN 300 UNIT/3 ML VIAL SQ PRN ×4 (09:08→22:08)
[2019-08-31 09:28] LABS: BASOPHILS % (AUTO) 0.2 % (0.0-2.0); EOSINOPHILS % (AUTO) 0.2 % (0.0-7.0); HEMATOCRIT 38.7 % (31.2-41.9); HEMOGLOBIN 12.5 g/dL (10.9-14.3); LYMPHOCYTES # (AUTO) 3.3 K/uL (20.0-40.0); LYMPHOCYTES % (AUTO) 16.9 % (20.5-51.5); MEAN CORPUSCULAR HEMOGLOBIN 26.4 uug (24.7-32.8); MEAN CORPUSCULAR HGB CONC 32 g/dL (32.3-35.6); MEAN CORPUSCULAR VOLUME 82.1 fL (75.5-95.3); MONOCYTES # (AUTO) 0.8 K/uL (2.0-10.0); MONOCYTES % (AUTO) 4.1 % (0.0-11.0); NEUTROPHILS # (AUTO) 15.5 K/uL (1.8-8.9); NEUTROPHILS % (AUTO) 78.6 % (38.5-71.5); PLATELET COUNT (AUTO) 305 K/uL (179-408); RED BLOOD CELL COUNT(AUTO) 4.71 MIL/uL (3.63-4.92); WHITE BLOOD COUNT (AUTO) 19.7 K/uL (3.8-11.8)
[2019-08-31 11:43] LABS: BILIRUBIN,TOTAL 0.3 mg/dL (0.2-1.0); CREATININE 0.9 mg/dL (0.6-1.3); TOTAL PROTEIN, SERUM 7.1 g/dL (6.4-8.2)
[2019-08-31 12:00] VITALS: BP 115/54
[2019-08-31 16:00] VITALS: BP 129/53
--- NOTE | 2019-08-31 18:30 | NUR ---
Pt had good appetite for lunch and dinner. Pt more calm and appropriate. Per DR laird pt is to have a covid swab tomorrow and to keep pt as PUI even if first covid test was negative. Call light is within reach. No fall noted this shift.
[2019-08-31 20:50] VITALS: BP 130/69
[2019-08-31] MEDS: PIPERACILLIN SODIUM/TAZOBACTAM 3.375 G in IV DEXTROSE 5% 50 ML IV SCH (21:53)
[2019-09-01] VITALS: BP 125/64
[2019-09-01 04:00] VITALS: BP 132/68
[2019-09-01] MEDS: BLOOD SUGAR DIAGNOSTIC 1 EACH STRIP VI SCH ×4 (06:38→21:36)
--- NOTE | 2019-09-01 06:46 | NUR ---
END OF SHIFT REPORT Patient rested well in between care; sitter at bedside; pt constantly removing monitor leads; placed leads in pt's back; safety maintained; encouraged PO intake; needs attended.
[2019-09-01 08:00] VITALS: BP 128/65
[2019-09-01] MEDS: LORAZEPAM 2 MG/1 ML VIAL IV PRN (08:23)
[2019-09-01] MEDS: ASPIRIN 81 MG TAB.CHEW PO SCH (08:24)
[2019-09-01] MEDS: MEMANTINE HCL 10 MG TABLET PO SCH ×2 (08:24→21:36)
[2019-09-01] MEDS: PANTOPRAZOLE SODIUM 40 MG TABLET.DR PO SCH (08:24)
[2019-09-01] MEDS: PIPERACILLIN SODIUM/TAZOBACTAM 3.375 G in IV DEXTROSE 5% 50 ML IV SCH ×3 (08:28→21:37)
[2019-09-01] MEDS: FLUOXETINE HCL 10 MG CAPSULE PO SCH (08:28)
[2019-09-01] MEDS: INSULIN GLARGINE,HUM 300 UNITS/3 ML CARTRIDGE SQ SCH ×2 (08:30→21:35)
--- NOTE | 2019-09-01 08:30 | NUR ---
PT frisian speaking. pt combative and hitting sitter at bedside. attempted to distract pt but not successful. Ativan given to calm pt down. Sitter 1:1 for safety. Call light is within reach.
[2019-09-01] MEDS: INSULIN REGULAR, HUMAN 300 UNIT/3 ML VIAL SQ PRN ×3 (12:26→21:35)
--- NOTE | 2019-09-01 13:00 | NUR ---
covid 19 swab done as ordered. Specimen sent to lab to be processed.
[2019-09-01 16:00] VITALS: BP 111/68
--- NOTE | 2019-09-01 18:50 | NUR ---
No fall noted this shift. Call light is within reach.
[2019-09-01 20:00] VITALS: BP 122/66
[2019-09-02] VITALS: BP 114/57
[2019-09-02 04:15] VITALS: BP 118/64
[2019-09-02 05:24] LABS: BASOPHILS # (AUTO) 0.1 K/uL (0.0-8.0); BASOPHILS % (AUTO) 0.5 % (0.0-2.0); EOSINOPHILS # (AUTO) 0.3 K/uL (0.0-0.7); EOSINOPHILS % (AUTO) 2.4 % (0.0-7.0); HEMATOCRIT 37.2 % (31.2-41.9); HEMOGLOBIN 12.1 g/dL (10.9-14.3); LYMPHOCYTES # (AUTO) 3.3 K/uL (20.0-40.0); LYMPHOCYTES % (AUTO) 24.9 % (20.5-51.5); MEAN CORPUSCULAR HEMOGLOBIN 26.6 uug (24.7-32.8); MEAN CORPUSCULAR HGB CONC 33 g/dL (32.3-35.6); MEAN CORPUSCULAR VOLUME 81.5 fL (75.5-95.3); MONOCYTES # (AUTO) 0.7 K/uL (2.0-10.0); MONOCYTES % (AUTO) 5.6 % (0.0-11.0); NEUTROPHILS # (AUTO) 8.7 K/uL (1.8-8.9); NEUTROPHILS % (AUTO) 66.6 % (38.5-71.5); PLATELET COUNT (AUTO) 302 K/uL (179-408); RED BLOOD CELL COUNT(AUTO) 4.56 MIL/uL (3.63-4.92); WHITE BLOOD COUNT (AUTO) 13.1 K/uL (3.8-11.8)
[2019-09-02 05:39] LABS: POTASSIUM 3.5 mmol/L (3.5-5.1)
--- NOTE | 2019-09-02 05:45 | NUR ---
Patient rested well in between care; sitter at bedside; no acute distress; afebrile; assisted to bathroom; new IV to left AC inserted by Nurse Luo; safety maintained; continue to monitor; continue plan of care.
[2019-09-02] MEDS: BLOOD SUGAR DIAGNOSTIC 1 EACH STRIP VI SCH ×4 (07:30→21:20)
[2019-09-02] MEDS: ASPIRIN 81 MG TAB.CHEW PO SCH (08:55)
[2019-09-02] MEDS: PANTOPRAZOLE SODIUM 40 MG TABLET.DR PO SCH (08:55)
[2019-09-02] MEDS: PIPERACILLIN SODIUM/TAZOBACTAM 3.375 G in IV DEXTROSE 5% 50 ML IV SCH ×3 (08:55→21:16)
[2019-09-02] MEDS: MEMANTINE HCL 10 MG TABLET PO SCH ×2 (08:55→21:16)
[2019-09-02] MEDS: FLUOXETINE HCL 10 MG CAPSULE PO SCH (08:55)
[2019-09-02] MEDS: INSULIN REGULAR, HUMAN 300 UNIT/3 ML VIAL SQ PRN ×4 (09:03→21:29)
[2019-09-02] MEDS: INSULIN GLARGINE,HUM 300 UNITS/3 ML CARTRIDGE SQ SCH ×2 (09:05→21:26)
[2019-09-02] MEDS: LORAZEPAM 2 MG/1 ML VIAL IV PRN (09:13)
[2019-09-02 09:21] VITALS: BP 118/54
[2019-09-02 11:59] VITALS: BP 102/45
[2019-09-02] MEDS: ZIPRASIDONE MESYLATE 20 MG VIAL IM PRN (12:00)
[2019-09-02] MEDS: ONDANSETRON 4 MG/2 ML VIAL IV PRN (12:01)
--- NOTE | 2019-09-02 12:07 | NUR ---
patient noted with constant agitation since morning, administered ativan and geodon, effective intermittently, 1;1 sitter at bedside, patient noted with productive constant cough, o2 saturation 89-90% at room air, o2 2liter given, o2 sat 95%, patient has episode of vomiting x2, zofran adminsitered
--- NOTE | 2019-09-02 12:12 | NUR ---
dr laird made aware about patient current condition, will continue to monitor
--- NOTE | 2019-09-02 16:03 | NUR ---
patient is in bed, asleep, no distress noted, 1;1 sitter is there, monitoring patient closely, no sob, resp even nonlabored, skin warm and dry to touch, returned call to daughter, left message to call back, no signs and symptoms of hypoglycemia or hyperglycemia noted such as no sweating, no cold extremities. easily arousal, continue to monitor
[2019-09-02 16:09] VITALS: BP 146/70
--- NOTE | 2019-09-02 19:00 | NUR ---
patient in bed, laying comfortably, no distress noted, continues 2 liter o2 via nasal canula, saturating at 98%, IV intact, patient transferred to [facility] 3rd floor room 314, report given to Liang SOTO,
--- NOTE | 2019-09-02 19:30 | NUR ---
Patient received in bed sleeping, easy to arouse. Patient has no s/s of SOB or acute distress. Patient has no s/s of pain as of the moment. Patient is on 1 L NC. Vitals are stable. Safety measures in place. Sitter is on site. Will continue with the plan of care.
[2019-09-02 20:00] VITALS: BP 154/79
[2019-09-03 00:29] VITALS: BP 118/67
[2019-09-03] MEDS: BLOOD SUGAR DIAGNOSTIC 1 EACH STRIP VI SCH ×4 (06:31→20:42)
[2019-09-03 06:44] LABS: BASOPHILS # (AUTO) 0.1 K/uL (0.0-8.0); BASOPHILS % (AUTO) 0.5 % (0.0-2.0); EOSINOPHILS # (AUTO) 0.3 K/uL (0.0-0.7); EOSINOPHILS % (AUTO) 3.2 % (0.0-7.0); HEMATOCRIT 37.9 % (31.2-41.9); HEMOGLOBIN 12.2 g/dL (10.9-14.3); LYMPHOCYTES # (AUTO) 2.6 K/uL (20.0-40.0); LYMPHOCYTES % (AUTO) 24.3 % (20.5-51.5); MEAN CORPUSCULAR HEMOGLOBIN 26.7 uug (24.7-32.8); MEAN CORPUSCULAR HGB CONC 32 g/dL (32.3-35.6); MEAN CORPUSCULAR VOLUME 83.1 fL (75.5-95.3); MONOCYTES # (AUTO) 0.8 K/uL (2.0-10.0); MONOCYTES % (AUTO) 7.4 % (0.0-11.0); NEUTROPHILS % (AUTO) 64.6 % (38.5-71.5); PLATELET COUNT (AUTO) 304 K/uL (179-408); RED BLOOD CELL COUNT(AUTO) 4.56 MIL/uL (3.63-4.92); WHITE BLOOD COUNT (AUTO) 10.8 K/uL (3.8-11.8)
--- NOTE | 2019-09-03 06:58 | NUR ---
Patient slept throughout the night. Patient has no s/s of acute distress or pain at this time. Patient was cooperative in between care. Needs attended. Patient has a sitter on site. Vitals are stable. Safety measures in place. Will endorse to the day shift RN accordingly.
[2019-09-03 07:04] LABS: MAGNESIUM 2.1 mg/dL (1.8-2.4); PHOSPHOROUS 4.3 mg/dL (2.5-4.9); POTASSIUM 3.7 mmol/L (3.5-5.1)
--- NOTE | 2019-09-03 07:30 | NUR ---
Patient in bed, awake and verbally responsive. Tamazight Speaking. No signs of distress noted. No complain of Pain or discomfort. Patient with 1:1 sitter for safety. Kept clean and comfortable. Will continue to monitor.
[2019-09-03] MEDS: FLUOXETINE HCL 10 MG CAPSULE PO SCH (08:48)
[2019-09-03] MEDS: MEMANTINE HCL 10 MG TABLET PO SCH ×2 (08:48→20:31)
[2019-09-03] MEDS: PANTOPRAZOLE SODIUM 40 MG TABLET.DR PO SCH (08:48)
[2019-09-03] MEDS: ASPIRIN 81 MG TAB.CHEW PO SCH (08:48)
[2019-09-03] MEDS: PIPERACILLIN SODIUM/TAZOBACTAM 3.375 G in IV DEXTROSE 5% 50 ML IV SCH ×2 (08:56→12:50)
[2019-09-03] MEDS: INSULIN GLARGINE,HUM 300 UNITS/3 ML CARTRIDGE SQ SCH ×2 (08:58→20:41)
[2019-09-03] MEDS: INSULIN REGULAR, HUMAN 300 UNIT/3 ML VIAL SQ PRN ×4 (11:36→23:33)
[2019-09-03 15:37] VITALS: BP 135/55
--- NOTE | 2019-09-03 17:58 | NUR ---
Patient in bed, awake and verbally responsive, confused. Persian Speaking. No signs of distress noted. No SOB. On Room Air saturating 96%, No complain of Pain or discomfort. last Blood Sugar was 285, 6 units Regular Insulin given as ordered per sliding scale. All due medication given as ordered. Kept clean and comfortable. Remains on 1:1 sitter for safety. Will endorse to Oncoming Nurse.
--- NOTE | 2019-09-03 19:45 | NUR ---
PATIENT ALERT WITH CONFUSION, NO SOB NO CHEST PAIN NOTED, PATIENT HAS EPISODE OF RESTLESSNESS, ASSISTED WITH TOILETING AND NUBIA CARE, PATIENT CONTINUE ON 1;1 SITTER FOR SAFETY, TRIES TO CLIMB OUT OF BED, RISK FOR FALL AND INJURY. PATIENT DENIES PAIN AT THIS TIME, SEEN BY INFECTIOUS SENIOR QUALITY CONTROL TECHNICIAN, WITH NEW ORDER. PATIENT HAS SOFT PASTE CONSISTENT BM MIXED WITH URINE, UNABLE TO COLLECT. PATIENT WILL CONTINUE TO MONITOR, AND TRIES TO COLLECT BM.
[2019-09-03 20:11] VITALS: BP 131/79
[2019-09-03] MEDS: ACIDOPHILUS/BULGARICUS CHEW TAB PO SCH (20:31)
[2019-09-03] MEDS ORDERED: CEFEPIME HCL 1 G in IV DEXTROSE 5% 50 ML IV SCH ×4 (21:00)
[2019-09-03] MEDS: ZIPRASIDONE MESYLATE 20 MG VIAL IM PRN (21:44)
--- NOTE | 2019-09-03 21:44 | NUR ---
PATIENT ALERT BUT FORGETFUL, PATIENT HAS EPISODE OF PSYCHOSIS CLIMBS OUT OF BED, PULLING IV LINES, PATIENT UNREDIRECTABLE., PATIENT KEPT ASKING FOR HER PURSES, AND AMONG OTHER THINGS. PATIENT ASSISTED TO TOILET FOR BLADDER ELIMINATIONS OFFER FOOD, AND WATER, PATIENT ON 1;1 SITTER FOR SAFETY, CONT TO MONITOR.
[2019-09-03] MEDS ORDERED: CEFEPIME HCL 1 G VIAL ONE (21:51)
[2019-09-03] MEDS: METRONIDAZOLE 500 MG/NS 100ML 500 MG in PREMIXED 1 EACH IV SCH (22:01)
[2019-09-03] MEDS: CEFEPIME HCL 0.5 G in IV DEXTROSE 5% 50 ML IV SCH (22:55)
[2019-09-03] MEDS: LORAZEPAM 2 MG/1 ML VIAL IV PRN (23:53)
--- NOTE | 2019-09-03 23:57 | NUR ---
PATIENT HAS EPISODE OF ANXIETY, RESTLESS IN BED, PATIENT TALKING SALAD, OFFER FOOD, AND FLUIDS, AND ASSISTED TO TOILET, PATIENT STILL RESTLESS, RISK FOR FALL AND INJURY, CONT ON 1;1 SITTER FOR SAFETY, CONT TO MONITOR.
[2019-09-04 05:00] VITALS: BP 135/67
[2019-09-04] MEDS: METRONIDAZOLE 500 MG/NS 100ML 500 MG in PREMIXED 1 EACH IV SCH ×3 (05:24→22:38)
[2019-09-04] MEDS: BLOOD SUGAR DIAGNOSTIC 1 EACH STRIP VI SCH ×4 (06:18→21:15)
--- NOTE | 2019-09-04 06:48 | NUR ---
PATIENT AWAKE MOST OF THE NIGHT, RESTLESS DESPITE KEEPING PATIENT CLEAN DRY, ASSISTED TO BATHROOM, OFFER FOOD, AND FLUIDS. PATIENT AT RISK FOR FALL, MULTIPLE EPISODE OF CLIMBING OUT OF BED, PATIENT OVER ESTIMATE HERSELF THINKING SHE CAN WALK STEADILY. PATIENT MEDICATED FOR ANXIETY AND PSYCHOSIS, WITH SOME HELP. PATIENT AFEBRILE WITH DRY COUGH, CONT TO MONITOR.
--- NOTE | 2019-09-04 07:55 | NUR ---
patient in bed and sleeping comfortably at this time, in NO acute distress. night shift supervisor reported patient was very agitated and fell asleep after 4AM. Patient in on one to one monitoring for safety, IV line on left FA intact and patent. Safety measures in place, call light left at bed side and will continue with care.
[2019-09-04] MEDS: INSULIN GLARGINE,HUM 300 UNITS/3 ML CARTRIDGE SQ SCH ×2 (09:00→21:16)
[2019-09-04] MEDS: PANTOPRAZOLE SODIUM 40 MG TABLET.DR PO SCH (09:47)
[2019-09-04] MEDS: ASPIRIN 81 MG TAB.CHEW PO SCH (09:47)
[2019-09-04] MEDS: ACIDOPHILUS/BULGARICUS CHEW TAB PO SCH ×2 (09:47→21:14)
[2019-09-04] MEDS: MEMANTINE HCL 10 MG TABLET PO SCH ×2 (09:47→21:14)
[2019-09-04] MEDS: FLUOXETINE HCL 10 MG CAPSULE PO SCH (09:47)
--- NOTE | 2019-09-04 09:48 | NUR ---
Patient still sleeping comfortably, held AM dose of Insulin and Lantus because patient is sleeping and did not eat breakfast will continue to monitor.
[2019-09-04 15:30] VITALS: BP 136/61
[2019-09-04] MEDS: INSULIN REGULAR, HUMAN 300 UNIT/3 ML VIAL SQ PRN ×2 (17:58→21:16)
--- NOTE | 2019-09-04 20:12 | NUR ---
Patient slept for most of the shift, patient was quite and cooperative with care. No acute distress noted. Vital signs stable, Denied pain throughout shift. Patient still with continuous 1 to 1 monitoring. IV line on Left AC intact and patent. All due meds administered and tolerated well. Patient on IV ATB of Flagyl and Cefepime. Patient was up on christian-chair. Skin kept clean and dry, made comfortable, monitored closely, assisted with feeding during care. All other needs attended, endorsed to next shift and will continue wit care.
[2019-09-04 20:44] VITALS: BP 125/68
[2019-09-04] MEDS: CEFEPIME HCL 0.5 G in IV DEXTROSE 5% 50 ML IV SCH (21:22)
--- NOTE | 2019-09-05 01:12 | NUR ---
Received pt at the beginning of shift, awake and alert x2. Croatian speaking, able to make needs known. No acute distress noted. Denies pain/ discomfort. On 1:1 sitter for safety. Due meds given as ordered, PO meds given crushed with apple sauce. IV on left AC #22, patent and intact. Safety measures maintained. Will continue to monitor.
[2019-09-05 05:01] VITALS: BP 115/68
[2019-09-05] MEDS: METRONIDAZOLE 500 MG/NS 100ML 500 MG in PREMIXED 1 EACH IV SCH ×3 (05:09→21:01)
[2019-09-05 05:37] LABS: BASOPHILS # (AUTO) 0.1 K/uL (0.0-8.0); BASOPHILS % (AUTO) 0.5 % (0.0-2.0); EOSINOPHILS # (AUTO) 0.3 K/uL (0.0-0.7); EOSINOPHILS % (AUTO) 2.6 % (0.0-7.0); HEMATOCRIT 35.1 % (31.2-41.9); HEMOGLOBIN 11.5 g/dL (10.9-14.3); LYMPHOCYTES # (AUTO) 3.4 K/uL (20.0-40.0); LYMPHOCYTES % (AUTO) 27.7 % (20.5-51.5); MEAN CORPUSCULAR HEMOGLOBIN 26.9 uug (24.7-32.8); MEAN CORPUSCULAR HGB CONC 33 g/dL (32.3-35.6); MEAN CORPUSCULAR VOLUME 81.9 fL (75.5-95.3); MONOCYTES # (AUTO) 0.8 K/uL (2.0-10.0); MONOCYTES % (AUTO) 6.9 % (0.0-11.0); NEUTROPHILS # (AUTO) 7.5 K/uL (1.8-8.9); NEUTROPHILS % (AUTO) 62.3 % (38.5-71.5); PLATELET COUNT (AUTO) 299 K/uL (179-408); RED BLOOD CELL COUNT(AUTO) 4.29 MIL/uL (3.63-4.92); WHITE BLOOD COUNT (AUTO) 12.1 K/uL (3.8-11.8)
[2019-09-05 05:45] LABS: CREATININE 1.1 mg/dL (0.6-1.3); MAGNESIUM 1.8 mg/dL (1.8-2.4); PHOSPHOROUS 3.7 mg/dL (2.5-4.9); POTASSIUM 3.9 mmol/L (3.5-5.1)
[2019-09-05] MEDS: BLOOD SUGAR DIAGNOSTIC 1 EACH STRIP VI SCH ×4 (06:30→20:41)
--- NOTE | 2019-09-05 07:30 | NUR ---
Received patient in bed, AOx2, awake. Denies sob or chest pain. no signs of distress. All needs met. Safety and fall prevention in place. call light in reach. Bed in low and locked position. Will continue to monitor.
[2019-09-05] MEDS: PANTOPRAZOLE SODIUM 40 MG TABLET.DR PO SCH (08:26)
[2019-09-05] MEDS: FLUOXETINE HCL 10 MG CAPSULE PO SCH (08:26)
[2019-09-05] MEDS: ACIDOPHILUS/BULGARICUS CHEW TAB PO SCH ×2 (08:26→20:34)
[2019-09-05] MEDS: MEMANTINE HCL 10 MG TABLET PO SCH (08:26)
[2019-09-05] MEDS: ASPIRIN 81 MG TAB.CHEW PO SCH (08:26)
[2019-09-05] MEDS: INSULIN GLARGINE,HUM 300 UNITS/3 ML CARTRIDGE SQ SCH ×2 (08:32→20:47)
[2019-09-05] MEDS: INSULIN REGULAR, HUMAN 300 UNIT/3 ML VIAL SQ PRN ×4 (08:33→20:47)
[2019-09-05 12:00] VITALS: BP 126/69
[2019-09-05] MEDS: LORAZEPAM 2 MG/1 ML VIAL IV PRN (12:28)
[2019-09-05 15:00] VITALS: BP 122/70
--- NOTE | 2019-09-05 17:59 | NUR ---
Patient in bed, AOx2, 1:1 sitter at bed side. Denies sob or chest pain. No signs of distress. All needs met throughout the shift. Safety and fall prevention in place. call light in reach. Bed in low and locked position. Will report to oncoming nurse.
[2019-09-05 20:17] VITALS: BP 130/62
[2019-09-05] MEDS: MEMANTINE HCL 5 MG TABLET PO SCH (20:34)
--- NOTE | 2019-09-05 21:12 | NUR ---
Received patient awake and oriented x 2, Macedonian speaking only. Patient is calm with no behavioral issues. Sitter at bedside. No acute distress noted. Patient is in room air. Skin intact. Patient abd. distended. HX of hernia. Safety initiated. Call light within reach. Will continue to monitor.
[2019-09-06 05:03] VITALS: BP 138/66
[2019-09-06] MEDS: METRONIDAZOLE 500 MG/NS 100ML 500 MG in PREMIXED 1 EACH IV SCH (05:18)
--- NOTE | 2019-09-06 05:20 | NUR ---
Patient slept intermittently t/o shift. Sitter at bedside. Patient need frequent re orientation. Pleasantly confused. Patient pulled IV, I was able to re-insert. Safety and comfort measures maintained t/o shift. Vital signs stable. All meds given as ordered. All needs met.
[2019-09-06] MEDS: LORAZEPAM 2 MG/1 ML VIAL IV PRN ×2 (05:37→12:48)
--- NOTE | 2019-09-06 05:37 | NUR ---
Patient appears agitated. Ativan 0.5 mg. IVP. Will continue to monitor.
[2019-09-06] MEDS: PANTOPRAZOLE SODIUM 40 MG TABLET.DR PO SCH (06:15)
[2019-09-06] MEDS: BLOOD SUGAR DIAGNOSTIC 1 EACH STRIP VI SCH ×4 (06:30→20:40)
[2019-09-06 07:31] VITALS: BP 111/70
[2019-09-06 07:33] VITALS: BP 132/59
--- NOTE | 2019-09-06 08:00 | NUR ---
1:1 sitter at bedside for safety. Call light is within reach.
[2019-09-06] MEDS: ACIDOPHILUS/BULGARICUS CHEW TAB PO SCH ×2 (09:05→20:40)
[2019-09-06] MEDS: FLUOXETINE HCL 10 MG CAPSULE PO SCH (09:05)
[2019-09-06] MEDS: ASPIRIN 81 MG TAB.CHEW PO SCH (09:05)
[2019-09-06] MEDS: MEMANTINE HCL 5 MG TABLET PO SCH ×2 (09:05→20:40)
[2019-09-06] MEDS: INSULIN GLARGINE,HUM 300 UNITS/3 ML CARTRIDGE SQ SCH ×2 (09:08→20:40)
[2019-09-06] MEDS: INSULIN REGULAR, HUMAN 300 UNIT/3 ML VIAL SQ PRN ×4 (09:09→20:40)
[2019-09-06 10:15] LABS: BASOPHILS # (AUTO) 0.1 K/uL (0.0-8.0); BASOPHILS % (AUTO) 0.7 % (0.0-2.0); EOSINOPHILS # (AUTO) 0.3 K/uL (0.0-0.7); EOSINOPHILS % (AUTO) 1.9 % (0.0-7.0); HEMATOCRIT 38.5 % (31.2-41.9); HEMOGLOBIN 12.3 g/dL (10.9-14.3); LYMPHOCYTES # (AUTO) 2.9 K/uL (20.0-40.0); MEAN CORPUSCULAR HEMOGLOBIN 26.3 uug (24.7-32.8); MEAN CORPUSCULAR HGB CONC 32 g/dL (32.3-35.6); MEAN CORPUSCULAR VOLUME 81.9 fL (75.5-95.3); MONOCYTES # (AUTO) 0.7 K/uL (2.0-10.0); MONOCYTES % (AUTO) 4.9 % (0.0-11.0); NEUTROPHILS # (AUTO) 10.5 K/uL (1.8-8.9); NEUTROPHILS % (AUTO) 72.5 % (38.5-71.5); PLATELET COUNT (AUTO) 317 K/uL (179-408); WHITE BLOOD COUNT (AUTO) 14.5 K/uL (3.8-11.8)
[2019-09-06 10:21] LABS: MAGNESIUM 1.8 mg/dL (1.8-2.4); PHOSPHOROUS 4.4 mg/dL (2.5-4.9); POTASSIUM 3.8 mmol/L (3.5-5.1)
--- NOTE | 2019-09-06 13:00 | NUR ---
PT combative attempting. to hit sitter. PT attempting to take off her IV. Call li
--- NOTE | 2019-09-06 13:00 | NUR ---
Ativan given prior intervention on distracting pt non effective.
[2019-09-06] MEDS ORDERED: METRONIDAZOLE 500 MG TABLET PO SCH (14:00)
--- NOTE | 2019-09-06 14:00 | NUR ---
Ativan effective pt sleeping in bed 1:1 sitter at bedside.
[2019-09-06 15:45] VITALS: BP 124/68
[2019-09-06] MEDS: ONDANSETRON 4 MG/2 ML VIAL IV PRN (18:08)
--- NOTE | 2019-09-06 18:47 | NUR ---
Pt is in no acute distress. UA ordered per ID. Stool c diff negative. No fall noted this shift.
--- NOTE | 2019-09-06 19:30 | NUR ---
Received patient awake and alert in the room, 1:1 sitter for safety. patient is ambulatory. Frequent redirection needed. No signs of acute distress noted. No complaints of pain or SOB. Vitals WNL. Heplock on the left forearm is intact and patent. Safety measures initiated. Bed is low and locked, call light within reach. Will continue to monitor.
[2019-09-06 20:28] VITALS: BP 128/68
[2019-09-07 06:14] LABS: BASOPHILS % (AUTO) 0.3 % (0.0-2.0); EOSINOPHILS # (AUTO) 0.3 K/uL (0.0-0.7); EOSINOPHILS % (AUTO) 1.9 % (0.0-7.0); HEMATOCRIT 35.5 % (31.2-41.9); HEMOGLOBIN 11.4 g/dL (10.9-14.3); LYMPHOCYTES % (AUTO) 14.1 % (20.5-51.5); MEAN CORPUSCULAR HEMOGLOBIN 26.4 uug (24.7-32.8); MEAN CORPUSCULAR HGB CONC 32 g/dL (32.3-35.6); MEAN CORPUSCULAR VOLUME 82.1 fL (75.5-95.3); MONOCYTES # (AUTO) 0.8 K/uL (2.0-10.0); MONOCYTES % (AUTO) 6.1 % (0.0-11.0); NEUTROPHILS # (AUTO) 10.8 K/uL (1.8-8.9); NEUTROPHILS % (AUTO) 77.6 % (38.5-71.5); PLATELET COUNT (AUTO) 298 K/uL (179-408); RED BLOOD CELL COUNT(AUTO) 4.32 MIL/uL (3.63-4.92); WHITE BLOOD COUNT (AUTO) 13.9 K/uL (3.8-11.8)
[2019-09-07 06:25] LABS: CREATININE 1.1 mg/dL (0.6-1.3); MAGNESIUM 1.8 mg/dL (1.8-2.4); PHOSPHOROUS 3.5 mg/dL (2.5-4.9)
[2019-09-07] MEDS: PANTOPRAZOLE SODIUM 40 MG TABLET.DR PO SCH (06:28)
[2019-09-07] MEDS: BLOOD SUGAR DIAGNOSTIC 1 EACH STRIP VI SCH ×2 (06:34→13:15)
--- NOTE | 2019-09-07 06:36 | NUR ---
Patient slept intermittently throughout the night. 1:1 sitter at the bedside, no episodes of agitation noted. Medication given as ordered. Will endorse to next shift.
[2019-09-07 07:30] VITALS: BP 115/80
[2019-09-07] MEDS: MEMANTINE HCL 5 MG TABLET PO SCH (08:42)
[2019-09-07] MEDS: ACIDOPHILUS/BULGARICUS CHEW TAB PO SCH (08:43)
[2019-09-07] MEDS: ASPIRIN 81 MG TAB.CHEW PO SCH (08:43)
[2019-09-07] MEDS: INSULIN GLARGINE,HUM 300 UNITS/3 ML CARTRIDGE SQ SCH (08:44)
[2019-09-07] MEDS: LORAZEPAM 2 MG/1 ML VIAL IV PRN (08:45)
[2019-09-07] MEDS: FLUOXETINE HCL 10 MG CAPSULE PO SCH (08:45)
[2019-09-07] MEDS: INSULIN REGULAR, HUMAN 300 UNIT/3 ML VIAL SQ PRN ×2 (08:49→13:16)
--- NOTE | 2019-09-07 08:50 | NUR ---
Pt pacing back and forth and being aggressive with sitter 1:1. Prior intervention of distraction is non effective. Ativan given to help calm pt down. Call light is within reach.
[2019-09-07] MEDS ORDERED: Insulin Glargine,Hum SQ (08:56)
--- NOTE | 2019-09-07 15:50 | NUR ---
Pt discharge back to [facility]. Made a final call to lab to f/u with covid result done yesterday still not availablebut pt had x 2 negative covid result per consensus of medical and casemanagement team pt is ok to go back to [facility]. IV on left arm d/c. Pt is in no acute distress upon discharge. Report given to EMT. No SOB noted.
== END 2019-09-07 15:50 | DRG 178 ==
LOC: ER 01:08 → MED 08:35 → TELE 12:53 → TELE3 09-02 19:13 → MEDSURG3 09-03 14:42
PROVIDERS: ADMIT Internal Medicine Nephrology; ATTEND Internal Medicine
DX: J69.0 Pneumonitis due to inhalation of food and vomit (principal); E44.1 Mild protein-calorie malnutrition; Z68.1 Body mass index [BMI] 19.9 or less, adult; D72.829 Elevated white blood cell count, unspecified; G30.9 Alzheimer's disease, unspecified; E11.65 Type 2 diabetes mellitus with hyperglycemia; E11.9 Type 2 diabetes mellitus without complications; F02.80 Dementia in other diseases classified elsewhere, unspecified severity, without behavioral disturbance, psychotic disturbance, mood disturbance, and anxiety; I10 Essential (primary) hypertension; Z79.4 Long term (current) use of insulin; E78.5 Hyperlipidemia, unspecified; F39 Unspecified mood [affective] disorder; Z87.820 Personal history of traumatic brain injury; F20.9 Schizophrenia, unspecified
CPT/HCPCS: 36415; 36600; 70030-TC; 71045; 74018; 83605; 83615; 83735; 84100; 85025; 85730; 86140; 87040; 87086; 93005; A4663; G0378; J0692; J1815; J2060; J2405; J2543; J3486; J3490; J7040; J7060; U0003-CS